=== PATIENT | male | born 1980 | race Caucasian/White ===

== ENCOUNTER 2018-06-23 00:07 | Emergency (ER) | payer OTHER ==
[~2018-06-23] VITALS: Ht 190.5 cm; Wt 102.1 kg
[~2018-06-23 00:07] MED LIST: CYCLOBENZAPRINE5 M3 PO; HYDROCODONE BIT1 T11 PO; Motrin,Rufen800 MG PO
== END 2018-06-23 01:33 | disposition home or self-care (01) ==
LOC: ED 00:07
DX: S42.402A Unspecified fracture of lower end of left humerus, initial encounter for closed fracture (principal); W01.0XXA Fall on same level from slipping, tripping and stumbling without subsequent striking against object, initial encounter; Y93.89 Activity, other specified; Y92.89 Other specified places as the place of occurrence of the external cause; Y99.8 Other external cause status

== ENCOUNTER 2021-06-06 22:58 | Emergency (ER) | payer SELFPAY ==
[~2021-06-06] VITALS: Ht 190.5 cm; Wt 102.1 kg
[~2021-06-06 22:58] MED LIST changes: +ZOFRAN4 MG PO
== END 2021-06-06 23:45 | disposition home or self-care (01) ==
LOC: ED 22:58
DX: S01.01XA Laceration without foreign body of scalp, initial encounter (principal); Z79.899 Other long term (current) drug therapy; Z98.890 Other specified postprocedural states; X58.XXXA Exposure to other specified factors, initial encounter; Y93.89 Activity, other specified; Y92.89 Other specified places as the place of occurrence of the external cause; Y99.8 Other external cause status

== ENCOUNTER 2022-03-26 23:12 | Emergency (ER) | payer SELFPAY ==
[~2022-03-26] VITALS: Ht 190.5 cm; Wt 97.5 kg
== END 2022-03-27 01:17 | disposition home or self-care (01) ==
LOC: ED 23:12
DX: S61.412A Laceration without foreign body of left hand, initial encounter (principal); W45.8XXA Other foreign body or object entering through skin, initial encounter; Y93.89 Activity, other specified; Y92.89 Other specified places as the place of occurrence of the external cause; Y99.8 Other external cause status